=== PATIENT | male | born 1955 | race Caucasian/White ===

== ENCOUNTER → 2016-09-03 | Outpatient (CLI) | payer OTHER ==
--- NOTE | 2016-09-03 21:45 | CONS ---
DATE OF CONSULTATION: Primary care physician is Dr. Radha Mujica. 61-year-old male patient coming in for re-evaluation regarding obstructive sleep apnea. The patient had a study approximately 10 years ago where he was found to have mild disease with an AHI of 6.5. Back then he was given CPAP therapy; however, this was not covered by his insurance and he did not receive any treatment. Over the years, he became more symptomatic. Currently he is noted to snore very loudly and stop breathing on multiple occasions throughout the night. He goes to bed around 10:00 p.m., wakes up at 4:15 a.m. in the morning and he wakes up non- refreshed during the day. No falling asleep while driving. The patient works in [employer] and drives back and forth to work 45 minutes each direction. Not involved in a motor vehicle accident because of feeling drowsy or sleepy. No sleepwalking. No sleeptalking. No grinding of the teeth. He has overbite with malalignment of his upper and lower jaw. No previous history of head and neck surgeries. No restlessness in the lower extremities. No alcohol drinking. No substance abuse. PAST MEDICAL HISTORY: Obstructive sleep apnea. Drug allergies are not known. Outpatient medication list includes: 1. Vytorin. 2. Atenolol. 3. Hydrochlorothiazide. 4. Tamsulosin. 5. Aspirin. FAMILY HISTORY: Negative. SOCIAL HISTORY: Nonsmoker. No history of alcohol. No history of IV drugs. Works as a [employer]. REVIEW OF SYSTEMS: Twelve-point review of systems was done. Positive findings all mentioned above in the history of present illness. BP is 124/72, pulse 66, respirations 16, temperature 97.1, saturation 95% on room air. Weight is 225. Height is 67 inches. BMI is 35.3. Neck size 16-1/2 inches. Nicholls score 15. GENERAL APPEARANCE: Calm, comfortable. HEENT: Malalignment with significant crowding of the posterior pharynx. No goiter or neck masses. LUNGS: Clear to auscultation. HEART: Sounds are regular rate and rhythm. Normal S1, S2. No S3. No S4. No murmurs. ABDOMEN: Soft, nontender, no organomegaly. EXTREMITIES: No edema. No cyanosis, or clubbing. IMPRESSION: 1. Obstructive sleep apnea. The patient is quite somnolent and sleepy with an Nicholls score of 15. Coming in for re-evaluation. Based on the previous study in 2006 his baseline AHI was at 6.5. 2. Hypersomnia Nicholls score of 15. 3. Obesity with a body mass index of 35. 4. Hyperlipidemia. 5. Hypertension. 6. Benign prostatic hypertrophy. PLAN: 1. Weight loss. 2. We will proceed another screening polysomnogram to re-evaluate the presence and severity of obstructive sleep apnea and treat accordingly.
== END | disposition home or self-care (01) ==
LOC: SLEEP 10:08
PROVIDERS: ATTEND Internal Medicine Critical Care Medicine
DX: G47.33 Obstructive sleep apnea (adult) (pediatric) (principal); G47.10 Hypersomnia, unspecified; E66.9 Obesity, unspecified; Z68.35 Body mass index [BMI] 35.0-35.9, adult; E78.5 Hyperlipidemia, unspecified; I10 Essential (primary) hypertension; N40.0 Benign prostatic hyperplasia without lower urinary tract symptoms; Z79.82 Long term (current) use of aspirin; Z79.899 Other long term (current) drug therapy
CPT/HCPCS: 99211

== ENCOUNTER 2016-09-15 07:38 | Inpatient (IN) | payer OTHER ==
[2016-09-15] MEDS ORDERED: ASPIRIN 81 MG CHEW PO STA ×2 (07:52→08:59)
[2016-09-15] MEDS ORDERED: SODIUM CHLORIDE 0.9% 1,000 ML IV STA (07:52)
[2016-09-15] MEDS ORDERED: ONDANSETRON 4 MG/2 ML VIAL IVP STA (07:52)
[2016-09-15] MEDS ORDERED: NITROGLYCERIN OINT 1 INCH/GM PACKET TOPICAL STA (07:52)
[2016-09-15] MEDS ORDERED: MORPHINE SULFATE 2 MG/ML SYRINGE IVP STA (07:52)
--- NOTE | 2016-09-15 08:02 | ED ---
Chest Pain HPI - General Chief Complaint: Chest Pain Stated Complaint: CHEST PAIN Time Seen by Provider: 09/15/16 07:47 Source: EMS Mode of arrival: EMS - History of Present Illness Initial Comments: [place] years old male presents with the chest pressure started about 5 AM EMS folks gave him nitro it helped but had chest pressure is coming back he has cysts or chest pressure symptoms before but it never lasted this long at that time and he noticed the chest pressure he was resting he was not exerting himself there was no nausea no vomiting he had some cold sweats night before but not this morning he is not short winded and there is no pleuritic chest pain , no fever no chills no jaw pain no arm pain of system is unremarkable otherwise - Related Data Home Medications Medication Instructions Recorded Confirmed Aspirin [Adult Low Dose Aspirin EC] 81 mg PO DAILY 09/15/16 09/15/16 Atenolol [Tenormin] 50 mg PO DAILY 09/15/16 09/15/16 Ezetimibe/Simvastatin [Vytorin 1 tab PO DAILY 09/15/16 09/15/16 10-40 mg Tablet] Hydrochlorothiazide 25 mg PO DAILY 09/15/16 09/15/16 Tamsulosin HCl [Flomax] 0.4 mg PO DAILY 09/15/16 09/15/16 Allergies Allergy/AdvReac Type Severity Reaction Status Date / Time No Known Allergies Allergy Verified 09/15/16 08:00 Review of Systems ROS Statement: Those systems with pertinent positive or pertinent negative responses have been documented in the HPI. ROS Other: All systems not noted in ROS Statement are negative. EKG Findings - EKG Comments: EKG Findings:: EKG is normal sinus rhythm WV interval interval is 19E ventricular rate is 64 QRS duration is 94 QT/QTc is 420/433 review of this EKG reveals T-wave inversion in leads 3 and T wave flattening in aVF no ST elevation or ST depression noticed in the other leads except we want there is a T-wave inversion as well Past Medical History Past Medical History: Hyperlipidemia, Hypertension History of Any Multi-Drug Resistant Organisms: None Reported Past Surgical History: Appendectomy Past Psychological History: No Psychological Hx Reported Smoking Status: Never smoker Past Alcohol Use History: Rare Past Drug Use History: None Reported Course Vital Signs 09/15/16 07:53 Temperature 97.3 F L Pulse Rate 62 Respiratory 14 Rate Blood Pressure 116/67 O2 Sat by Pulse 94 L Oximetry Critical Care Time Total Critical Care Time: 45 Critical Care Time: He came in with a chest pressure and chest pressure responded to nitro very nicely but later he developed chest pressure again and he had the sweats last night to the point that he soaked the bed and that and with his other risk factors like hypertension and his age home and now the troponin is positive he has a non-Q MO is to be admitted with the massive aspirin and heparin and cardiology consult Disposition Clinical Impression: Myocardial infarction Disposition: ADMITTED IP TO THIS HOSP Condition: Good
[2016-09-15 08:10] LABS: Aty Lym Flag Slight; CH 29.7; CHCM 34.7; HCT 42.5 % (39.0-53.0); HDW 2.92; HGB 14.7 gm/dL (13.0-17.5); MCH 29.7 pg (25.0-35.0); MCHC 34.5 g/dL (31.0-37.0); Mean Platelet Volume 7.5; RBC 4.94 m/uL (4.30-5.90); RDW 13.1 % (11.5-15.5); WBC 5.3 k/uL (3.8-10.6); WBC (Perox) 5.27
[2016-09-15 08:16] LABS: INR 1.1 (<1.1); Partial Thromboplastin Time 24.1 sec (22.0-30.0)
[2016-09-15 08:18] LABS: ALT 37 U/L (21-72); AST 37 U/L (17-59); Alkaline Phosphatase 61 U/L (38-126); Anion Gap 11 mmol/L; Blood Urea Nitrogen 13 mg/dL (9-20); Carbon Dioxide 27 mmol/L (22-30); Chloride 103 mmol/L (98-107); Glucose 108 mg/dL (74-99); Non-African American GFR(MDRD) >60 (>60 ml/min/1.73 sqM); Potassium 3.6 mmol/L (3.5-5.1); Sodium 141 mmol/L (137-145); Total Bilirubin 0.7 mg/dL (0.2-1.3); Total Protein 7.1 g/dL (6.3-8.2)
--- NOTE | 2016-09-15 08:36 | XR ---
EXAMINATION TYPE: XR chest 2V DATE OF EXAM: 09/15/2016 8:26 AM HISTORY: Chest Pain. REFERENCE: NONE. FINDINGS: The lungs are clear. Heart size is upper limits of normal. Pleural spaces are clear. Note is made of hypertrophic change in the right AC joint. IMPRESSION: 1. BORDERLINE CARDIOMEGALY. 2. NO ACUTE INTRATHORACIC ABNORMALITY.
[2016-09-15 08:45] LABS: Add Differential Manual Differential
[2016-09-15 08:47] LABS: Creatine Kinase MB 6.7 ng/mL (0.0-2.4); Troponin I 1.22 ng/mL (0.000-0.034)
[2016-09-15 08:48] LABS: Manual Review Performed; Nucleated Red Blood Cells 0 /100 WBC (0-0); Total Cells Counted 100
[2016-09-15] MEDS ORDERED: HEPARIN SODIUM,PORCINE 5,000 UNIT/ML 1 ML VIAL IV ONE (08:59)
[2016-09-15] MEDS ORDERED: ACETAMINOPHEN TAB 325 MG TAB PO PRN (08:59)
[2016-09-15] MEDS ORDERED: MORPHINE SULFATE 2 MG/ML SYRINGE IVP PRN (08:59)
[2016-09-15] MEDS ORDERED: HEPARIN SODIUM,PORCINE/D5W PMX 25,000 UNIT in DEXTROSE/WATER 1 500ML.BAG IV SCH (09:00)
[2016-09-15] MEDS: METOPROLOL TARTRATE 25 MG TAB PO SCH ×2 (09:30→20:40)
[2016-09-15] MEDS ORDERED: SODIUM CHLORIDE 0.9% 1,000 ML in EMPTY BAG 1 BAG IV ONE (10:26)
[2016-09-15] MEDS ORDERED: ALPRAZolam 0.5 MG TAB PO PRN (10:26)
[2016-09-15] MEDS ORDERED: ASPIRIN 325 MG TAB PO STA (10:26)
[2016-09-15] MEDS ORDERED: NITROGLYCERIN SL TABS 0.4 MG TAB SUBLINGUAL PRN ×2 (10:26→14:10)
[2016-09-15] MEDS ORDERED: ALPRAZolam 0.25 MG TAB PO PRN (10:26)
[2016-09-15] MEDS ORDERED: ATORVASTATIN 80 MG TAB PO STA (10:26)
[2016-09-15 11:11] VITALS: BMI 34.2
[2016-09-15 11:39] LABS: Glucose,Whole Blood 98 mg/dL (75-99)
[2016-09-15] MEDS ORDERED: diphenhydrAMINE 50 MG/ML 1 ML VIAL ONE (12:34)
[2016-09-15] MEDS ORDERED: VERAPAMIL 2.5 MG/ML 2 ML AMP ONE (12:34)
[2016-09-15] MEDS ORDERED: HEPARIN SODIUM,PORCINE 30 ML 30 ML ONE (12:34)
[2016-09-15] MEDS ORDERED: LIDOCAINE 2% INJ 20 MG/ML (20 ML MDV) ONE (12:34)
[2016-09-15] MEDS ORDERED: MIDAZOLAM 2 MG/2 ML VIAL ONE (12:34)
[2016-09-15] MEDS ORDERED: HEPARIN SODIUM 1,000 UNIT/ML VIAL ONE (12:34)
[2016-09-15] MEDS ORDERED: IV FLUID CONTINUATION 1,000 ML IV ONE (12:35)
[2016-09-15] MEDS ORDERED: fentaNYL (PF) 50 MCG/ML 2 ML AMP ONE (12:54)
[2016-09-15] MEDS ORDERED: diphenhydrAMINE 50 MG/ML 1 ML VIAL IVP ONE (13:09)
[2016-09-15] MEDS ORDERED: fentaNYL (PF) 50 MCG/ML 2 ML AMP IV ONE (13:10)
[2016-09-15] MEDS ORDERED: LIDOCAINE 2% INJ 20 MG/ML SQ ONE (13:14)
[2016-09-15] MEDS ORDERED: VERAPAMIL SYRINGE (5 MG/10 ML) INTRAARTER ONE (13:18)
[2016-09-15] MEDS ORDERED: BIVALIRUDIN BOLUS 250 MG/50 ML IV ONE (13:40)
[2016-09-15] MEDS ORDERED: CLOPIDOGREL 75 MG TAB ONE (13:40)
[2016-09-15] MEDS ORDERED: BIVALIRUDIN 250 MG in SODIUM CHLORIDE 0.9% 50 ML IV ONE (13:41)
[2016-09-15] MEDS ORDERED: CLOPIDOGREL 75 MG TAB PO ONE (13:43)
[2016-09-15] MEDS ORDERED: NITROGLYCERIN 1000MCG/10ML SYRINGE INTRACORON ONE (13:49)
[2016-09-15] MEDS ORDERED: IOHEXOL 350 MG/ML 100 ML BOTTLE INJ ONE (13:59)
[2016-09-15] MEDS ORDERED: MAG HYDROX/AL HYDROX/SIMETH 30 ML CUP PO PRN (14:10)
[2016-09-15] MEDS ORDERED: RX INFO: IV CONTRAST WAS GIVEN 1 EACH MISC MISCELLANE PRN (14:10)
[2016-09-15] MEDS ORDERED: ATROPINE SULFATE 0.1 MG/ML 10ML SYRINGE IV PRN (14:10)
[2016-09-15] MEDS ORDERED: ZOLPIDEM 5 MG TAB PO PRN (14:10)
[2016-09-15] MEDS ORDERED: SODIUM CHLORIDE 0.9% 1,000 ML IV SCH (14:15)
--- NOTE | 2016-09-15 14:17 | CONS ---
DATE OF CONSULTATION: ATTENDING: Dr. Mujica Mr. Martinez is a 61-year-old male with known history of hypertension and hyperlipidemia, who presented with episode of chest discomfort and severe diaphoresis that occurred at night. He has no prior history of similar findings. He said at night woke up quite wet and had chest pressure. He came into the emergency room and received sublingual nitroglycerin and he is pain-free at this time. He is reasonably active physically without any exertional chest pain. He denies any significant dyspnea on exertion. No dizziness. No palpitation. No syncope. No PND, orthopnea. No peripheral edema. His medications at home include Flomax, hydrochlorothiazide 25 mg daily, aspirin once a day, Vytorin 10-40 mg daily and atenolol 50 mg daily. REVIEW OF SYSTEMS: RESPIRATORY SYSTEM: He has no recent wheezing. No cough. No history of obstructive lung disease. GI SYSTEM: No recent GI bleeding. No peptic ulcer disease. SYSTEM: No dysuria or hematuria. NERVOUS SYSTEM: No stroke or seizure. PHYSICAL EXAMINATION: A 61-year-old male, alert, oriented, in no apparent distress. Blood pressure 102/50 with a heart in the 50s. HEAD: Normocephalic. EYES: Sclerae anicteric. NECK: Good upstroke. No bruit. No jugular venous distention. LUNGS: Clear to auscultation. HEART: Regular rate and rhythm. S1, S2, no S3, with systolic murmur at the base. No diastolic murmur. No rub. ABDOMEN: Soft, nontender, positive bowel sounds. No organomegaly. EXTREMITIES: No edema. Intact distal pulses. Lab data revealed troponin of 1.22. BUN and creatinine of 13 and 0.8. Potassium 3.6, hemoglobin of 14.7. EKG revealed sinus mechanism, normal axis and intervals with T wave inversion inferiorly in leads III and aVF. Chest x-ray revealed no infiltrate. IMPRESSION: 1. Evidence of non-ST segment elevation myocardial infarction. 2. Hypertension. 3. Hyperlipidemia. RECOMMENDATIONS: Will proceed with coronary angiography to assess his status and guide his treatment. The rationale behind the procedure as well as risks and complications were discussed with the patient was who is in full understanding and agreement. Depending on the results of testing further recommendation will be made. Thank you for this consult. We will follow with you.
--- NOTE | 2016-09-15 15:36 | HP ---
DATE OF ADMISSION: 09/15/2016 The patient is a very pleasant 61-year-old gentleman who came in with complaints of pressure like chest pain, constant in nature, nonradiating in the retrosternal area. Associated with some shortness of breath, nonexertional in nature. The patient's chest pain is nonpleuritic in nature, not associated with food and patient had an EKG which is within normal limits. The patient's first troponin is elevated to 1.22 and patient was evaluated by cardiology. Patient is going for cardiac catheterization today. Patient does not have any history of coronary artery disease in the past. Does have family history of myocardial infarction. REVIEW OF SYSTEMS: CONSTITUTIONAL: No fever, no malaise, no fatigue. HEENT: No recent visual problems or hearing problems. Denied any sore throat. CARDIOVASCULAR: As described in HPI. PULMONARY: No shortness of breath, no cough, no hemoptysis. GASTROINTESTINAL: No diarrhea, no nausea, no vomiting, no abdominal pain. Normoactive bowel sounds. NEUROLOGICAL: No headaches, no weakness, no numbness. HEMATOLOGICAL: Denies any bleeding or petechiae. GENITOURINARY: Denies any burning micturition, frequency, or urgency. MUSCULOSKELETAL/RHEUMATOLOGICAL: Denies any joint pain, swelling, or any muscle pain. ENDOCRINE: Denies any polyuria or polydipsia. The rest of the 14 point review of systems is negative. Home medications include: 1. Aspirin. 2. Atenolol. 3. Zetia. 4. Hydrochlorothiazide. 5. Tamsulosin. ALLERGIES: No known drug allergies. PAST MEDICAL HISTORY: Hyperlipidemia, hypertension, appendectomy. SOCIAL HISTORY: Denied smoking, alcohol abuse or drug abuse. FAMILY HISTORY: Significant for hypertension in the family. VITAL SIGNS: Temperature 97.1, pulse of 99, respiratory rate of 16, blood pressure is 102/58, saturating at 96% on room air. PHYSICAL EXAMINATION: GENERAL: The patient is alert and oriented x3, not in any acute distress. Well developed, well nourished. HEENT: Pupils are round and equally reacting to light. EOMI. No scleral icterus. No conjunctival pallor. Normocephalic, atraumatic. No pharyngeal erythema. No thyromegaly. CARDIOVASCULAR: S1 and S2 present. No murmurs, rubs, or gallops. PULMONARY: Chest is clear to auscultation, no wheezing or crackles. ABDOMEN: Soft, nontender, nondistended, normoactive bowel sounds. No palpable organomegaly. MUSCULOSKELETAL: No joint swelling or deformity. EXTREMITIES: No cyanosis, clubbing, or pedal edema. NEUROLOGICAL: Gross neurological examination did not reveal any focal deficits. SKIN: No rashes. LABORATORY DATA: CBC, CMP, essentially within normal limits. Troponin as mentioned above. EKG as mentioned above. Chest x-ray did not show any pneumonic process. ASSESSMENT AND PLAN: 1. Sxs-CY-wzadhpitq myocardial infarction. Patient is on IV heparin and beta margareth. Patient is going for cardiac catheterization today. Cardiology evaluated the patient. 2. Hypertension. 3. Hyperlipidemia. For above-mentioned chronic medical problems, I will go ahead and continue his home medications. Maybe hold off on hydrochlorothiazide as patient is going to receive the beta margareth at this point of time. The patient is going to receive contrast as well. Patient is on antiplatelet therapy at this point of time. Patient's primary care physician is Dr. Cat Mujica.
--- NOTE | 2016-09-15 19:23 | CC ---
DATE OF SERVICE: Mr. Stinson is a 61-year-old male with a known history of hypertension, hyperlipidemia, who presented with symptoms of chest discomfort, had mild elevation of troponin consistent with non-ST segment elevation myocardial infarction. In view of that, recommendation was made regarding cardiac catheterization. The procedure as well as the risks and complications were discussed with the patient who is in full understanding and agreement. PROCEDURE: Patient was brought to the catheter in fasting semi state after receiving fentanyl and Benadryl and achieving moderate conscious sedation state. Using Xylocaine anesthesia and Seldinger technique, a 6 Gambian sheath was introduced in the right radial artery. Selective right and left coronary angiography were performed using 5 Gambian 3-1/2 Bend right Paul catheter, attempt to cannulate the left main using a 5 Gambian 3-1/2 Bend left Paul were unsuccessful. Subsequently attempt using a 6 Gambian EBU 3.75 was unsuccessful. Subsequent an Ecari left 3.75 was successful cannulating the left main, images of the left coronary system were obtained and following that angioplasty and stenting of the ramus intermedius was done. Following that, a 6 Gambian tight pigtail catheter was introduced into the left ventricle and a 30 degree ZAYAS view of the left ventricle was obtained. Following that, catheter and sheaths were removed. Hemostasis was obtained with deployment of TR band. There were no immediate complications. Patient is returned to his room in stable condition. Of note that he received intra-arterial verapamil. FINDINGS: LEFT MAIN: This is a large-size vessel trifurcating into left circumflex and left anterior descending artery and ramus intermedius, left main coronary artery is without any obstructive disease. LEFT ANTERIOR DESCENDING ARTERY: This is a large-size vessel reaching toward the apex, tapers down and distal third giving rise to a large diagonal branch proximally. The LAD after the diagonal branch at the take off of the first septal physician relations specialist has about a 30 to 40% plaque. The rest of the vessel has no high-grade stenosis. Ramus intermedius: This is a large-size vessel reaching the apical lateral wall. In the mid segment of the vessel there is an eccentric 70% plaque. LEFT CIRCUMFLEX: This is a nondominant vessel, giving rise to a moderately sized obtuse marginal branch that has mild intimal disease of 10 to 20% without any evidence of high-grade stenosis. RIGHT CORONARY ARTERY: This is a large dominant vessel, bifurcating distally into PDA and posterolateral segment and branches. The right coronary artery in the proximal and mid segment has mild intimal disease up to 20%, distally gives rise to a PLV that reaches towards the inferoapical wall. The rest of the vessel has no high-grade stenosis. LEFT VENTRICULOGRAM: Left ventriculogram was performed in 30 degrees ZAYAS view and revealed a normal left ventricular size and systolic function. Ejection fraction was 60%. There was no significant mitral regurgitation. HEMODYNAMICS: There was no gradient across the aortic valve. The left ventricular end-diastolic pressure was 12 mmHg. CONCLUSION: 1. Significant obstructive disease involving the ramus intermedius. 2. Mild disease involving the LAD, left circumflex and the right coronary artery. 3. Normal left ventricular size and systolic function. RECOMMENDATIONS: In view of the findings and anatomy, I have recommended proceeding with angioplasty and stenting of the ramus intermedius. The procedure as well as the risks and complications were discussed with the patient who is in full understanding and agreement.
--- NOTE | 2016-09-15 19:48 | PTCA ---
DATE OF SERVICE: Mr. Stinson is a 61-year-old male with a history of hypertension, hyperlipidemia, who presented with non- ST segment elevation myocardial infarction, underwent cardiac catheterization, was found to have significant disease involving the ramus intermedius. In view of that, recommendation was made regarding angioplasty and stenting. The procedure, as well as risks and complications were discussed with the patient who was in full understanding and agreement. PROCEDURE: Using the 3.75 Ecari left guiding catheter and after cannulating the left main, a 0.014 balanced medium weight J-wire was advanced across the lesion, positioned distally, then a 2.5 x 12 mm Xience Alpine stent was deployed, it was dilated at 12 atmospheres. After the last inflation, after appropriate wait, the balloon and the guidewire were withdrawn back in the guiding catheter. Images were obtained and repeated. Those images revealed stable successful stenting. Subsequently left ventriculogram was performed using 6 Samoan tight pigtail catheter, subsequently, catheter and sheaths were removed. Hemostasis was obtained with deployment of a TR band. There were no medical complications. Patient is returned to his room in stable condition. Of note, the patient had chest discomfort with the inflation that resolved at the end of procedure, he received Angiomax per protocol as well as oral loading dose of Clopidogrel. RESULTS: Successful stenting of the ramus intermedius with reduction in stenosis from 70% to 0%. RECOMMENDATION: Patient will be continued on aspirin, Plavix, beta margareth, and statin. The importance of dual antiplatelet treatment were discussed with the patient and his family who are in full understanding and agreement.
--- NOTE | 2016-09-15 19:50 | LTR ---
September 15, 2016 RE: Juan Christiano Dear Dr. Mujica: I had the pleasure of performing coronary angiography and coronary angioplasty and stenting on Mr. Martinez at [facility] on the september and a fully copy of procedure note will be forwarded to you. In brief, he underwent successful stenting of the ramus intermedius using a drug-eluting stent. At the same time, he was found to have mild obstructive disease involving the LAD, left circumflex and the right coronary artery. I am hopeful that this procedure, will stabilize his status . Thank you again for allowing me to participate in his care. Please feel free to call for any questions. Sincerely, KEVIN GARCIA MD
[2016-09-15 20:31] LABS: Creatine Kinase MB 7.6 ng/mL (0.0-2.4); Troponin I 3.41 ng/mL (0.000-0.034)
[2016-09-15] MEDS: ATORVASTATIN 40 MG TAB PO SCH (20:40)
[2016-09-16] MEDS: NITROGLYCERIN SL TABS 0.4 MG TAB SUBLINGUAL PRN ×3 (05:17→05:27)
[2016-09-16] MEDS ORDERED: HYDROmorphone 1 MG/ML 1 ML SYRINGE IVP STA (05:46)
[2016-09-16 06:59] LABS: CH 29.7; CHCM 34.4; HCT 41.7 % (39.0-53.0); HDW 2.91; HGB 14.1 gm/dL (13.0-17.5); MCH 29.4 pg (25.0-35.0); MCHC 33.9 g/dL (31.0-37.0); MCV 86.7 fL (80.0-100.0); Mean Platelet Volume 7.6; RBC 4.81 m/uL (4.30-5.90); WBC 5.5 k/uL (3.8-10.6)
[2016-09-16 07:02] LABS: Anion Gap 10 mmol/L; Blood Urea Nitrogen 13 mg/dL (9-20); Calcium 8.8 mg/dL (8.4-10.2); Carbon Dioxide 27 mmol/L (22-30); Chloride 105 mmol/L (98-107); Cholesterol 85 mg/dL (<200); Glucose 94 mg/dL (74-99); HDL Cholesterol 33 mg/dL (40-60); Non-African American GFR(MDRD) >60 (>60 ml/min/1.73 sqM); Potassium 3.6 mmol/L (3.5-5.1); Sodium 142 mmol/L (137-145); Triglycerides 111 mg/dL (<150)
[2016-09-16] MEDS: TAMSULOSIN 0.4 MG CAP.ER.24H PO SCH (08:41)
[2016-09-16] MEDS: METOPROLOL TARTRATE 25 MG TAB PO SCH ×2 (08:41→19:56)
[2016-09-16] MEDS: ASPIRIN 325 MG TAB PO SCH (08:41)
[2016-09-16] MEDS ORDERED: HYDROCHLOROTHIAZIDE 25 MG TAB PO SCH (09:00)
--- NOTE | 2016-09-16 11:14 | ECHOF ---
Referral Reason:mi MEASUREMENTS -------- HEIGHT: 172.7 cm WEIGHT: 99.3 kg BP: 145/85 RVIDd: 2.8 cm (< 3.3) IVSd: 1.3 cm (0.6 - 1.1) LVIDd: 4.8 cm (3.9 - 5.3) LVPWd: 1.1 cm (0.6 - 1.1) IVSs: 1.5 cm LVIDs: 3.6 cm LVPWs: 1.2 cm LA Diam: 4.2 cm (2.7 - 3.8) LAESV Index (A-L): 31.12 ml/m Ao Diam: 3.2 cm (2.0 - 3.7) AV Cusp: 2.0 cm (1.5 - 2.6) LA Diam: 4.5 cm (2.7 - 3.8) MV EXCURSION: 26.377 mm (> 18.000) MV EF SLOPE: 137 mm/s (70 - 150) EPSS: 0.7 cm MV E Shubham: 0.76 m/s MV DecT: 143 ms MV A Shubham: 0.67 m/s MV E/A Ratio: 1.13 RAP: 5.00 mmHg RVSP: 32.85 mmHg FINDINGS -------- Sinus rhythm. This was a technically adequate study. There is mild concentric left ventricular hypertrophy. Overall left ventricular systolic function is low-normal with, an EF between 50 - 55 %. The right ventricle is normal in size. LA is midly dilated 29-33ml/m2. The right atrial size is normal. There is mild aortic valve sclerosis. There is no evidence of aortic regurgitation. Mild mitral annular calcification present. Mild mitral regurgitation is present. Mild tricuspid regurgitation present. There is no evidence of pulmonary hypertension. The right ventricular systolic pressure, as measured by Doppler, is 32.85mmHg. Trace/mild (physiologic) pulmonic regurgitation. The aortic root size is normal. There is no pericardial effusion. CONCLUSIONS -------- 1. There is mild concentric left ventricular hypertrophy. 2. Trace/mild (physiologic) pulmonic regurgitation. 3. The aortic root size is normal. 4. There is no pericardial effusion. 5. Overall left ventricular systolic function is low-normal with, an EF between 50 - 55 %. 6. LA is midly dilated 29-33ml/m2. 7. There is mild aortic valve sclerosis. 8. Mild mitral annular calcification present. 9. Mild mitral regurgitation is present. 10. Mild tricuspid regurgitation present. 11. There is no evidence of pulmonary hypertension. 12. The right ventricular systolic pressure, as measured by Doppler, is 32.85mmHg. EDUCATION TECHNICIAN: Nikki Hollingsworth RDCS
[2016-09-16 11:56] VITALS: RESP 16
[2016-09-16] MEDS: CLOPIDOGREL 75 MG TAB PO SCH (14:19)
--- NOTE | 2016-09-16 15:00 | P.PN ---
Subjective Principal diagnosis: Non-STEMI This is a 61-year-old gentleman who presented to the hospital with a non-ST elevation myocardial infarction. He has known history of hypertension and hyperlipidemia, patient underwent angioplasty with stenting of the ramus by Dr. Grigsby yesterday. This morning patient did have an episode of discomfort in his right upper chest and right shoulder area, EKG was performed at that time which did not reveal any changes from post-PCI. Hemodynamically he has been stable. Patient was given 3 sublingual nitros and ultimately glottic with relief of symptoms. Since then he's been up ambulating in the hallway without any chest discomfort. CBC normal, potassium 3.6, BUN 13, creatinine 0.9. Objective - Vital Signs Vital signs: Vital Signs Temp 98.1 F 09/16/16 11:56 Pulse 67 09/16/16 12:00 Resp 16 09/16/16 12:00 BP 123/70 09/16/16 11:56 Pulse Ox 97 09/16/16 11:56 Intake & Output 09/15/16 09/16/16 09/16/16 18:59 06:59 18:59 Intake Total 241.48 680 Output Total 200 1100 400 Balance 41.48 -1100 280 Weight 102.1 kg 99.7 kg 99.7 kg Intake: IV 123.48 Oral 118 680 Output: Urine 200 1100 400 Other: Voiding Method Toilet Toilet Urinal Urinal # Voids 1 2 - Exam PHYSICAL EXAMINATION: HEENT: Head is atraumatic, normocephalic. Pupils equal, round. Neck is supple. There is no elevated jugular venous pressure. HEART EXAMINATION: Heart S1 and S2 systolic murmur is heard. CHEST EXAMINATION: Lungs are clear to auscultation and precussion. No chest wall tenderness is noted on palpation or with deep breathing. ABDOMEN: Soft, nontender. Bowel sounds are heard. No organomegaly noted. EXTREMITIES: 2+ peripheral pulses with no evidence of peripheral edema and no calf tenderness noted. Right radial site clean and dry, good distal pulse. NEUROLOGIC patient is awake, alert and oriented -3. . - Labs CBC & Chem 7: 09/16/16 05:40 09/16/16 05:40 Labs: Abnormal Lab Results - Last 24 Hours (Table) 09/15/16 09/16/16 Range/Units 19:17 05:40 Total Creatine Kinase 177 H (55-170) U/L CK-MB (CK-2) 7.6 H* (0.0-2.4) ng/mL Troponin I 3.410 H* (0.000-0.034) ng/mL HDL Cholesterol 33 L (40-60) mg/dL Assessment and Plan (1) NSTEMI (non-ST elevated myocardial infarction) Status: Acute (2) Stented coronary artery Narrative/Plan: s/p stenting of the Ramus Status: Acute (3) HTN (hypertension) Status: Chronic (4) Hyperlipemia Status: Chronic Plan: From cardiology's perspective, we'll continue to monitor the patient for another 24 hours. Plan for possible discharge home tomorrow if stable. Echocardiogram with Doppler study was performed which revealed an ejection fraction of 50-55%. DNP note has been reviewed, I agree with a documented findings and plan of care. Patient was seen and examined.
--- NOTE | 2016-09-16 17:47 | P.PN ---
Subjective Date of service 09/16/2016. Progress notebeing dictated for Dr. Desir Interval History: This is a 61 year old gentleman admitted with non-STEMI and multiple other medical issues. Underwent cardiac catheterization with stenting of the ramus yesterday, tolerated procedure well. This morning complained of right chest pain radiating to shoulder to back, accompanied by increasing shortness of breath ,lasting approximately 20 minutes at rest. Received 3 sublingual nitros and Dilaudid ,Symptoms resolved. EKG performed, reviewed by cardiology, without changes. Telemetry sinus bradycardia to sinus rhythm. Potassium 3.6. Echo reporting EF between 50-55%. Objective - Vital Signs Vital signs: Vital Signs Temp 98.4 F 09/16/16 16:48 Pulse 62 09/16/16 16:48 Resp 16 09/16/16 16:48 BP 111/70 09/16/16 16:48 Pulse Ox 96 09/16/16 16:48 Intake & Output 09/15/16 09/16/16 09/16/16 18:59 06:59 18:59 Intake Total 241.48 920 Output Total 200 1100 400 Balance 41.48 -1100 520 Weight 102.1 kg 99.7 kg 99.7 kg Intake: IV 123.48 Oral 118 920 Output: Urine 200 1100 400 Other: Voiding Method Toilet Toilet Urinal Urinal # Voids 1 2 - Exam PHYSICAL EXAM: VITAL SIGNS: [As above] GENERAL: [Sitting up at side of bed, no acute distress] HEENT: [Pupils equal conjunctiva normal.] NECK: [Supple, no JVD] RESPIRATORY EFFORT:[Normal] LUNGS: [Clear, no wheezes rhonchi or crackles] CARDIOVASCULAR[regular S1 and S2, positive systolic murmur, no edema] GI: [Abdomen soft, nontender, positive bowel sounds.] PSYCH: [Alert and oriented -3, mood and affect normal.] NEURO: No focal deficits, moves all 4 extremities, strength and sensation grossly intact. - Labs CBC & Chem 7: 09/16/16 05:40 09/16/16 05:40 Labs: Abnormal Lab Results - Last 24 Hours (Table) 09/15/16 09/16/16 Range/Units 19:17 05:40 Total Creatine Kinase 177 H (55-170) U/L CK-MB (CK-2) 7.6 H* (0.0-2.4) ng/mL Troponin I 3.410 H* (0.000-0.034) ng/mL HDL Cholesterol 33 L (40-60) mg/dL Assessment and Plan Plan: 1. Acute non-STEMI, status post cardiac catheterization with stenting of the ramus. 2. [Hypertension]. 3. [Hyperlipidemia]. Plan continue on current medication regime , monitoring and symptomatic treatment. Maintain dual antiplatelet treatment, beta margareth and statin.Continue monitoring overnight. Discharge planning in progress for tomorrow pending cardiology clearance. The impression and plan of care has been dictated as directed. : I performed a H&P examination of this patient and discussed the same with the dictator. I agree with the dictator's note. Any additional findings/opinions/ etc. will be noted.
[2016-09-16] MEDS: ATORVASTATIN 40 MG TAB PO SCH (19:56)
[2016-09-17 08:05] VITALS: TEMP 97.2
[2016-09-17] MEDS: CLOPIDOGREL 75 MG TAB PO SCH (08:05)
[2016-09-17] MEDS: ASPIRIN 325 MG TAB PO SCH (08:05)
[2016-09-17] MEDS: TAMSULOSIN 0.4 MG CAP.ER.24H PO SCH (08:06)
[2016-09-17] MEDS: METOPROLOL TARTRATE 25 MG TAB PO SCH (08:06)
--- NOTE | 2016-09-17 11:34 | PN ---
Mr. Martinez is a 61-year-old male who presented with non- ST segment elevation myocardial infarction, underwent cardiac catheterization and stenting of the ramus intermedius. He has been ambulating without difficulty. Denying any chest pain. His breathing has been stable. He denies any dizziness, palpitation. He denies any nausea. He continues to be on aspirin once a day, Lipitor 40 mg daily, Plavix 75 mg daily, metoprolol tartrate 25 mg twice a day. PHYSICAL EXAMINATION: Blood pressure 121/72 with the heart rate in the 70s. LUNGS: Clear. HEART: Regular rate and rhythm. S1, S2, no S3, no rub. ABDOMEN: Soft, nontender. EXTREMITIES: No edema. EKG revealed no acute changes. Echocardiogram revealed an ejection fraction 50% to 55% with mild mitral and tricuspid regurgitation. CONCLUSION: 1. Status post non- ST segment elevation myocardial infarction and stenting of the ramus intermedius. 2. History of hyperlipidemia. RECOMMENDATIONS: Patient will be discharged home today and followed as an outpatient.
[2016-09-17 11:43] VITALS: BP 115/67; PULSE 57
[2016-09-17] MEDS ORDERED: POTASSIUM CHLORIDE ER 20 MEQ TAB.ER PO STA (12:03)
--- NOTE | 2016-09-17 16:15 | P.DS ---
Providers Date of admission: 09/15/16 08:59 Expected date of discharge: 09/17/16 Attending physician: Fidel Desir Consults: 09/15/16 14:10 Consult Physician Routine Consulting Provider: [facility] Consult Reason/Comments: Post Interventional patient Do you want consulting provider notified?: Already Contacted Primary care physician: Cat Mujica [facility] Course: Final Diagnoses: 1. Acute non-STEMI, status post cardiac catheterization with stenting of the ramus. 2. [Hypertension]. 3. [Hyperlipidemia]. Hospital course:This is a 61 year old gentleman admitted with chest pain, acute non-STEMI and multiple other medical issues. Evaluated by cardiology , underwent cardiac catheterization with stenting of the ramus, tolerated procedure well. Echo reporting EF between 50-55%. Postprocedure, the following morning, complained of an isolated chest pain, EKG repeated and reviewed by cardiology with no changes reported. Ambulating, tolerating increase in exertion well with no further episodes of chest pain. Patient has been cleared for discharge by cardiology. Patient is being discharged home in a stable condition with guarded prognosis. Patient Condition at Discharge: Stable Plan - Discharge Summary New Discharge Prescriptions: Atorvastatin [Lipitor] 40 mg PO HS #30 tab Clopidogrel [Plavix] 75 mg PO DAILY #90 tab Metoprolol Tartrate [Lopressor] 25 mg PO BID #60 tab Nitroglycerin Sl Tabs [Nitrostat] 0.4 mg SUBLINGUAL Q5M PRN #25 tab PRN Reason: Chest Pain Discharge Medication List Aspirin [Adult Low Dose Aspirin EC] 81 mg PO HS 09/15/16 [History] Tamsulosin HCl [Flomax] 0.4 mg PO HS 09/15/16 [History] Atorvastatin [Lipitor] 40 mg PO HS #30 tab 09/17/16 [Rx] Clopidogrel [Plavix] 75 mg PO DAILY #90 tab 09/17/16 [Rx] Metoprolol Tartrate [Lopressor] 25 mg PO BID #60 tab 09/17/16 [Rx] Nitroglycerin Sl Tabs [Nitrostat] 0.4 mg SUBLINGUAL Q5M PRN #25 tab 09/17/16 [Rx ] Follow up Appointment(s)/Referral(s): Minda Grigsby MD [STAFF PHYSICIAN] - 1 Week (Cardiology office to call pt) Cat Mujica MD [Primary Care Provider] - 3 Days (Office closed for meeting , pt to call and schedule appointment) Ambulatory/Diagnostic Orders: Complete Blood Count w/diff [LAB.AMB] Time Frame: 3 Days, Location: Determined By Patient Patient Instructions/Handouts: After Radial Heart Catheterization (GEN) Activity/Diet/Wound Care/Special Instructions: Diet: cardiac aCTIVITY: LIMITED tiLL f/u Discharge Disposition: HOME SELF-CARE
== END 2016-09-17 13:48 | disposition home or self-care (01) | DRG 247 ==
LOC: EC 07:38 → 6SEL 08:59
PROVIDERS: ADMIT Internal Medicine; ATTEND Internal Medicine
PROC: B2111ZZ Fluoroscopy of Multiple Coronary Arteries using Low Osmolar Contrast (ICD-10-PCS; 2016-09-15)
PROC: B2151ZZ Fluoroscopy of Left Heart using Low Osmolar Contrast (ICD-10-PCS; 2016-09-15)
PROC: 027034Z Dilation of Coronary Artery, One Artery with Drug-eluting Intraluminal Device, Percutaneous Approach (ICD-10-PCS; principal; 2016-09-15 12:25)
PROC: 4A023N7 Measurement of Cardiac Sampling and Pressure, Left Heart, Percutaneous Approach (ICD-10-PCS; 2016-09-15 12:25)
DX: I21.4 Non-ST elevation (NSTEMI) myocardial infarction (principal); I10 Essential (primary) hypertension; E78.5 Hyperlipidemia, unspecified; R00.1 Bradycardia, unspecified; Z79.82 Long term (current) use of aspirin; Z79.899 Other long term (current) drug therapy; Z82.49 Family history of ischemic heart disease and other diseases of the circulatory system
CPT/HCPCS: 36415; 71020; 80048; 80053; 80061; 82550; 82553; 83735; 83880; 84484; 85025; 85027; 85347; 85610; 85730; 93005; 93306; 93458; 96361; 96374; 96376; 99291

== ENCOUNTER → 2017-01-07 | Outpatient (CLI) | payer OTHER ==
--- NOTE | 2017-01-07 18:01 | PN ---
Christiano is 61 coming in for follow up regarding his obstructive sleep apnea treatment. The patient was found to have mild disease with an AHI of 12.8. Yet , based on the fact that he was quite symptomatic, he was treated with CPAP at a pressure of 9 cm of water. Today, on his compliancy check, the patient is feeling great. He is benefiting from treatment. He is much more alert and awake during the day. He is using an AirFit P10 nasal pillow. However, he is on and off having some snoring from his mouth and leak of air from his mouth. He is looking for an alternative full face mask. Compliance data shows excellent use of an average of 6.9 hours of CPAP use per night. No leak around the mask. Leak factor is 13 L per minute and his AHI while on treatment is down to 0.4. CPAP treatment for more than four hours is 100% for the past 30 days. He has lost 7 to 8 pounds since his last evaluation. BP 133/67. Pulse 67. Respiratory rate 16, weight 218. Temperature 97.9. Lentner score is 9. Saturation 97%. General appearance: Calm, comfortable. HEENT: Negative for JVD. No goiter. No neck masses. Lungs clear to auscultation. Heart sounds regular rate and rhythm. Normal S1, S2. Abdomen soft, nontender. No organomegaly. Extremities: No edema. No cyanosis. No clubbing. ASSESSMENT: 1. Symptomatic obstructive sleep apnea. AHI 12.8 currently undergoing successful CPAP therapy pressure of 9. 2. Hypersomnia, improving. 3. Obesity, losing weight. 4. Hyperlipidemia. 5. Hypertension. 6. BPH. PLAN: 1. The patient has demonstrated excellent clinical response and compliance. Compliance data was checked. We will try him on an air touch F20 full face mask as an alternative mask and a prescription was sent. Alternatively, the patient can use the Mirage FX with a chin strap. 2. Her treatment is successful. 3. See me back in a year or two. Earlier if needed. ALONA
== END | disposition home or self-care (01) ==
LOC: SLEEP 10:00
PROVIDERS: ATTEND Internal Medicine Critical Care Medicine
DX: G47.33 Obstructive sleep apnea (adult) (pediatric) (principal); G47.10 Hypersomnia, unspecified; E66.9 Obesity, unspecified; E78.5 Hyperlipidemia, unspecified; I10 Essential (primary) hypertension; N40.1 Benign prostatic hyperplasia with lower urinary tract symptoms

== ENCOUNTER → 2017-01-07 | Outpatient (CLI) | payer OTHER ==
[2017-01-07 09:57] LABS: ALT 40 U/L (21-72); AST 27 U/L (17-59); Alkaline Phosphatase 65 U/L (38-126); Anion Gap 8 mmol/L; Blood Urea Nitrogen 15 mg/dL (9-20); Calcium 9.3 mg/dL (8.4-10.2); Carbon Dioxide 29 mmol/L (22-30); Chloride 104 mmol/L (98-107); Cholesterol 122 mg/dL (<200); Glucose 87 mg/dL (74-99); HDL Cholesterol 52 mg/dL (40-60); Non-African American GFR(MDRD) >60 (>60 ml/min/1.73 sqM); Potassium 4.4 mmol/L (3.5-5.1); Sodium 141 mmol/L (137-145); Total Bilirubin 0.7 mg/dL (0.2-1.3); Total Protein 7.3 g/dL (6.3-8.2); Triglycerides 81 mg/dL (<150)
== END ==
LOC: LABWHC1 08:38
PROVIDERS: ATTEND Internal Medicine Interventional Cardiology
DX: E78.2 Mixed hyperlipidemia (principal)
CPT/HCPCS: 36415; 80053; 80061

== ENCOUNTER → 2017-06-25 | Outpatient (CLI) | payer OTHER ==
[2017-06-25 09:18] LABS: ALT 50 U/L (21-72); AST 28 U/L (17-59); Cholesterol 132 mg/dL (<200); HDL Cholesterol 56 mg/dL (40-60); LDL Cholesterol,Calculated 60 mg/dL (0-99); Triglycerides 78 mg/dL (<150)
== END | disposition home or self-care (01) ==
LOC: LABWHC1 08:24
PROVIDERS: ATTEND Internal Medicine Interventional Cardiology
DX: E78.2 Mixed hyperlipidemia (principal)
CPT/HCPCS: 36415; 80061; 84450; 84460

== ENCOUNTER → 2017-09-24 | Outpatient (CLI) | payer OTHER ==
--- NOTE | 2017-09-24 09:21 | US ---
EXAMINATION TYPE: US prostate transrectal DATE OF EXAM: 09/24/2017 COMPARISON: Prior prostate ultrasound 08/02/2015. CLINICAL HISTORY: R97.20 Elevated PSA. This examination was performed using the transrectal probe. EXAM MEASUREMENTS: Gland Size: 6.7 x 3,9 x 5.7cm Volume: 78.4 Predicted PSA: 9.4 Actual PSA (if available):6.6 Initial images of region of seminal vesicles show marked shadowing without definitive visualization. Prostate gland remains markedly heterogeneous in appearance and markedly enlarged in size even more p rominent than prior study. No obvious hypoechoic nodule is seen. IMPRESSION: Markedly enlarged heterogeneous prostate consistent with BPH. No suspicious nodules evid ent.
== END | disposition home or self-care (01) ==
LOC: RADUSMAIN 08:03
PROVIDERS: ATTEND Internal Medicine
DX: R93.8 Abnormal findings on diagnostic imaging of other specified body structures (principal); R97.20 Elevated prostate specific antigen [PSA]
CPT/HCPCS: 76872

== ENCOUNTER → 2018-03-11 | Outpatient (CLI) | payer OTHER ==
[2018-03-11 08:44] LABS: Basophils % (A) 0 %; Eosinophils # (A) 0.2 k/uL (0-0.7); Eosinophils % (A) 3 %; HCT 47.7 % (39.0-53.0); HGB 16.3 gm/dL (13.0-17.5); Lymphocytes # (A) 1.3 k/uL (1.0-4.8); Lymphocytes % (A) 21 %; MCH 30.1 pg (25.0-35.0); MCHC 34.1 g/dL (31.0-37.0); MCV 88.3 fL (80.0-100.0); Mean Platelet Volume 7.7; Monocytes # (A) 0.3 k/uL (0-1.0); Monocytes % (A) 5 %; Neutrophils # (A) 4.3 k/uL (1.3-7.7); Neutrophils % (A) 70 %; Platelet Count 173 k/uL (150-450); RDW 13.4 % (11.5-15.5); WBC 6.1 k/uL (3.8-10.6)
[2018-03-11 09:10] LABS: ALT 35 U/L (21-72); AST 28 U/L (17-59); Albumin 4.1 g/dL (3.5-5.0); Alkaline Phosphatase 70 U/L (38-126); Anion Gap 8 mmol/L; Blood Urea Nitrogen 15 mg/dL (9-20); Calcium 9.2 mg/dL (8.4-10.2); Carbon Dioxide 30 mmol/L (22-30); Chloride 104 mmol/L (98-107); Cholesterol 132 mg/dL (<200); Creatine Kinase 71 U/L (55-170); Glucose 90 mg/dL (74-99); HDL Cholesterol 47 mg/dL (40-60); LDL Cholesterol,Calculated 49 mg/dL (0-99); Potassium 4.5 mmol/L (3.5-5.1); Sodium 142 mmol/L (137-145); Total Bilirubin 0.7 mg/dL (0.2-1.3); Total Protein 7.5 g/dL (6.3-8.2); Triglycerides 181 mg/dL (<150)
[2018-03-11 20:21] LABS: Hemoglobin A1C 5.2 % (4.0-6.0)
== END | disposition home or self-care (01) ==
LOC: LABWHC1 08:15
PROVIDERS: ATTEND Family Medicine
DX: E78.5 Hyperlipidemia, unspecified (principal)
CPT/HCPCS: 36415; 80053; 80061; 82550; 83036; 85025

== ENCOUNTER → 2018-03-31 | Outpatient (CLI) | payer OTHER ==
--- NOTE | 2018-03-31 10:38 | ECHOF ---
Referral Reason:I25.10Atherosclerotic heart disease of [place] MEASUREMENTS -------- HEIGHT: 172.7 cm WEIGHT: 102.1 kg BP: 161/78 RVIDd: 3.3 cm (< 3.3) IVSd: 1.2 cm (0.6 - 1.1) LVIDd: 4.7 cm (3.9 - 5.3) LVPWd: 1.2 cm (0.6 - 1.1) IVSs: 1.6 cm LVIDs: 3.1 cm LVPWs: 1.5 cm LA Diam: 3.7 cm (2.7 - 3.8) LAESV Index (A-L): 32.54 ml/m Ao Diam: 3.7 cm (2.0 - 3.7) AV Cusp: 2.4 cm (1.5 - 2.6) MV EXCURSION: 17.354 mm (> 18.000) MV EF SLOPE: 97 mm/s (70 - 150) EPSS: 0.4 cm MV E Shubham: 0.74 m/s MV DecT: 188 ms MV A Shubham: 0.58 m/s MV E/A Ratio: 1.28 AR PHT: 931 ms RAP: 5.00 mmHg RVSP: 18.81 mmHg FINDINGS -------- Sinus rhythm. This was a technically good study. The left ventricular size is normal. There is borderline concentric left ventricular hypertrophy. Overall left ventricular systolic function is normal with, an EF between 55 - 60 %. The right ventricle is mildly enlarged. LA is midly dilated 29-33ml/m2. The right atrium is normal in size. There is mild aortic valve sclerosis. There is mild aortic regurgitation. There is trace mitral regurgitation. Mild tricuspid regurgitation present. Right ventricular systolic pressure is normal at < 35 mmHg. Trace/mild (physiologic) pulmonic regurgitation. The aortic root size is normal. Normal inferior vena cava with normal inspiratory collapse consistent with estimated right atrial pre ssure of 5 mmHg. There is no pericardial effusion. CONCLUSIONS -------- 1. Sinus rhythm. 2. This was a technically good study. 3. The left ventricular size is normal. 4. There is borderline concentric left ventricular hypertrophy. 5. Overall left ventricular systolic function is normal with, an EF between 55 - 60 %. 6. The right ventricle is mildly enlarged. 7. LA is midly dilated 29-33ml/m2. 8. The right atrium is normal in size. 9. There is mild aortic valve sclerosis. 10. There is mild aortic regurgitation. 11. There is trace mitral regurgitation. 12. Mild tricuspid regurgitation present. 13. Right ventricular systolic pressure is normal at < 35 mmHg. 14. Trace/mild (physiologic) pulmonic regurgitation. 15. The aortic root size is normal. 16. Normal inferior vena cava with normal inspiratory collapse consistent with estimated right atrial pressure of 5 mmHg. 17. There is no pericardial effusion. RADIOLOGIST DIAGNOSTIC: Afshan Kim RDCS
== END | disposition home or self-care (01) ==
LOC: RADECHMAIN 08:19
PROVIDERS: ATTEND Family Medicine
DX: I08.2 Rheumatic disorders of both aortic and tricuspid valves (principal); I25.10 Atherosclerotic heart disease of native coronary artery without angina pectoris
CPT/HCPCS: 93306

== ENCOUNTER → 2018-10-30 | Outpatient (CLI) | payer OTHER ==
[2018-10-30 07:28] LABS: Basophils % (A) 0 %; Eosinophils # (A) 0.2 k/uL (0-0.7); Eosinophils % (A) 3 %; HGB 15.2 gm/dL (13.0-17.5); Lymphocytes # (A) 1.3 k/uL (1.0-4.8); Lymphocytes % (A) 21 %; MCH 28.5 pg (25.0-35.0); MCHC 32.3 g/dL (31.0-37.0); MCV 88.2 fL (80.0-100.0); Monocytes # (A) 0.4 k/uL (0-1.0); Monocytes % (A) 6 %; Neutrophils # (A) 4.3 k/uL (1.3-7.7); Neutrophils % (A) 68 %; Platelet Count 177 k/uL (150-450); RBC 5.33 m/uL (4.30-5.90); RDW 13.9 % (11.5-15.5); WBC 6.4 k/uL (3.8-10.6)
[2018-10-30 12:20] LABS: Albumin 4.3 g/dL (3.80-4.90); Albumin/Globulin Ratio 1.65 (1.60-3.17); Anion Gap 3.6 mmol/L (4.00-12.00); Calcium 8.9 mg/dL (8.7-10.3); Carbon Dioxide 31.4 mmol/L (21.6-31.8); Globulin 2.6 g/dL (1.6-3.3); Potassium 4.4 mmol/L (3.5-5.5); Total Bilirubin 0.6 mg/dL (0.2-1.2); Total Protein 6.9 g/dL (6.2-8.2)
[2018-10-30 14:01] LABS: Hemoglobin A1C 5.5 % (4.0-6.0)
== END | disposition home or self-care (01) ==
LOC: LABWHC1 07:09
PROVIDERS: ATTEND Family Medicine
DX: Z00.00 Encounter for general adult medical examination without abnormal findings (principal); E78.5 Hyperlipidemia, unspecified; Z12.5 Encounter for screening for malignant neoplasm of prostate
CPT/HCPCS: 80061; 80053; 84443; 82550; 85025; 83036; 36415; G0103

== ENCOUNTER → 2019-04-16 | Outpatient (CLI) | payer OTHER ==
[2019-04-16 11:44] LABS: Basophils % (A) 0 %; Eosinophils # (A) 0.1 k/uL (0-0.7); Eosinophils % (A) 2 %; HCT 45.8 % (39.0-53.0); HGB 15.5 gm/dL (13.0-17.5); Lymphocytes # (A) 1.1 k/uL (1.0-4.8); Lymphocytes % (A) 21 %; MCH 30.2 pg (25.0-35.0); MCHC 33.8 g/dL (31.0-37.0); MCV 89.3 fL (80.0-100.0); Mean Platelet Volume 6.4; Monocytes # (A) 0.3 k/uL (0-1.0); Monocytes % (A) 6 %; Neutrophils # (A) 3.9 k/uL (1.3-7.7); Neutrophils % (A) 70 %; Platelet Count 179 k/uL (150-450); RBC 5.12 m/uL (4.30-5.90); RDW 13.4 % (11.5-15.5); WBC 5.6 k/uL (3.8-10.6)
[2019-04-16 17:40] LABS: African American GFR (CKD) 91.8 (60.0-200.0); Albumin 4.6 g/dL (3.80-4.90); Albumin/Globulin Ratio 1.77 (1.60-3.17); Anion Gap 7.3 mmol/L (4.00-12.00); Calcium 9.1 mg/dL (8.7-10.3); Carbon Dioxide 28.7 mmol/L (21.6-31.8); Chol/HDL Ratio 2.33; Globulin 2.6 g/dL (1.6-3.3); Potassium 3.9 mmol/L (3.5-5.5); Total Bilirubin 0.7 mg/dL (0.2-1.2); Total Protein 7.2 g/dL (6.2-8.2)
[2019-04-16 19:40] LABS: Hemoglobin A1C 5.3 % (4.0-6.0)
== END ==
LOC: LABWHC1 10:59
PROVIDERS: ATTEND Urology
DX: E78.5 Hyperlipidemia, unspecified (principal); R97.20 Elevated prostate specific antigen [PSA]
CPT/HCPCS: 36415; 80053; 80061; 82550; 83036; 84153; 85025

== ENCOUNTER → 2019-08-06 | Outpatient (CLI) | payer OTHER ==
[2019-08-06 10:38] LABS: Basophils % (A) 0 %; Eosinophils # (A) 0.1 k/uL (0-0.7); Eosinophils % (A) 2 %; HCT 46.5 % (39.0-53.0); HGB 15.8 gm/dL (13.0-17.5); Lymphocytes # (A) 1.1 k/uL (1.0-4.8); Lymphocytes % (A) 20 %; MCH 29.9 pg (25.0-35.0); MCHC 33.9 g/dL (31.0-37.0); MCV 88.3 fL (80.0-100.0); Mean Platelet Volume 8.2; Monocytes # (A) 0.3 k/uL (0-1.0); Monocytes % (A) 5 %; Neutrophils # (A) 3.9 k/uL (1.3-7.7); Neutrophils % (A) 71 %; Platelet Count 175 k/uL (150-450); RBC 5.27 m/uL (4.30-5.90); RDW 13.1 % (11.5-15.5); WBC 5.6 k/uL (3.8-10.6)
[2019-08-06 10:49] LABS: Calcium 9.1 mg/dL (8.4-10.2); Potassium 4.3 mmol/L (3.5-5.1)
== END | disposition home or self-care (01) ==
LOC: LABPAT 09:37
PROVIDERS: ATTEND Urology
DX: Z01.812 Encounter for preprocedural laboratory examination (principal); C61 Malignant neoplasm of prostate
CPT/HCPCS: 36415; 80048; 85025

== ENCOUNTER 2019-08-13 06:05 | Observation (INO) | payer OTHER ==
[2019-08-04 13:54] VITALS: BMI 32.8
--- NOTE | 2019-08-08 09:16 | P.GSHP ---
History of Present Illness H&P Date: 08/08/19 Chief Complaint: Prostate cancer The patient is a 64-year-old white male whose PSA level was 6.6 in August 2017. His PSA level increased to 8.1 in October 2018, and 11.0 in April 2019. His prostate on examination was enlarged but smooth. He underwent a prostate ultrasound with biopsies. The prostate volume was 51 mL. 3 out of 12 biopsies showed evidence of prostate cancer. Specifically, the right apical and right mid biopsies showed Richie 3+4 (50% and 10%, respectively), and the left lateral mid biopsy showed a small focus of [place] 6 adenocarcinoma. The Prolaris score was 2.7. I had a lengthy discussion with the patient and his regarding alternative treatment options. He has elected to undergo a robotic-assisted laparoscopic prostatectomy (RALP) and comes for this reason. - Constitutional Constitutional: Denies chills, Denies fever - Cardiovascular Cardiovascular: Reports high blood pressure - Genitourinary (Male) Genitourinary: Reports nocturia, Denies erectile dysfunction Past Medical History Past Medical History: Cancer, Hyperlipidemia, Hypertension, Myocardial Infarction ([place]), Sleep Apnea/CPAP/BIPAP Additional Past Medical History / Comment(s): prostate CA-dx Jun 2019-no radiation or chemo,uses cpap Last Myocardial Infarction Date:: 2016 History of Any Multi-Drug Resistant Organisms: None Reported Past Surgical History: Appendectomy, Heart Catheterization With Stent, Orthopedi c Surgery Additional Past Surgical History / Comment(s): Right Shoulder Rotator Cuff in 2012, heart stent x1,prostate bx Past Anesthesia/Blood Transfusion Reactions: No Reported Reaction Date of Last Stent Placement:: 2016 Smoking Status: Never smoker - Past Family History Father Family Medical History: Hypertension Mother Family Medical History: COPD Additional Family Medical History / Comment(s): emphysema Medications and Allergies Home Medications Medication Instructions Recorded Confirmed Type Aspirin [Adult Low Dose Aspirin EC] 81 mg PO HS 09/15/16 08/04/19 History Tamsulosin HCl [Flomax] 0.4 mg PO HS 09/15/16 08/04/19 History Atorvastatin [Lipitor] 40 mg PO HS #30 tab 09/17/16 08/04/19 Rx Metoprolol Tartrate [Lopressor] 25 mg PO BID #60 tab 09/17/16 08/04/19 Rx Nitroglycerin Sl Tabs [Nitrostat] 0.4 mg SUBLINGUAL Q5M PRN #25 tab 09/17/16 08/04/19 Rx Losartan Potassium 50 mg PO HS 08/05/19 08/05/19 History Allergies Allergy/AdvReac Type Severity Reaction Status Date / Time No Known Allergies Allergy Verified 08/04/19 13:43 Surgical - Exam - General well developed, well nourished, no distress - Neck no masses, trachea midline - Respiratory normal respiratory effort, clear to auscultation - Cardiovascular Rhythm: regular Abnormal Heart Sounds: no systolic murmur, no diastolic murmur - Abdomen Abdomen: soft, non tender, no guarding, no rigid, no rebound Hernia: no inguinal, no umbilical - Genitourinary normal penis with no external lesions left: testicle absent - Rectum Rectum: normal sphincter tone, no masses, other (Prostate moderately enlarged but smooth) - Psychiatric oriented to time, oriented to person, oriented to place, speech is normal, memory intact Assessment and Plan (1) Malignant neoplasm of prostate Status: Acute Code(s): C61 - MALIGNANT NEOPLASM OF PROSTATE SNOMED Code(s): 252597932 Plan: RALP with bilateral pelvic lymphadenectomy. The procedure has been reviewed in detail with the patient and his . The anticipated perioperative course was discussed, as were potential risks. These include anesthesia, bleeding, infection, bowel injury, neurovascular injury, urinary leak, lymphocele, and vesical neck contracture. He is aware of the likelihood of postoperative urinary incontinence, which may fail to resolve. He also understands the possibility of erectile dysfunction despite preservation of the neurovascular bundles.
[~2019-08-13 06:05] MED LIST: HEPARIN SODIUM,PORCINE 5,000 UNIT/ML 1 ML VIAL SQ ONE
[2019-08-13] MEDS ORDERED: LACTATED RINGERS 1,000 ML IV ONE ×4 (06:40→12:11)
[2019-08-13] MEDS ORDERED: MIDAZOLAM 2 MG/2 ML VIAL IV PRN (06:42)
[2019-08-13] MEDS ORDERED: HYDROmorphone 0.5 MG/0.5 ML SYRINGE IVP PRN (06:42)
[2019-08-13] MEDS ORDERED: DEXAMETHASONE SOD PHOSPHATE 10 MG/ML 1 ML VIAL IV ONE (06:42)
[2019-08-13] MEDS ORDERED: ONDANSETRON 4 MG/2 ML VIAL IVP ONE (06:42)
[2019-08-13] MEDS ORDERED: LIDOCAINE 1% (10MG/ML) FOR IV START INTRADERMA ONE (06:44)
[2019-08-13] MEDS ORDERED: WATER FOR INJECTION, STERILE 10 ML VIAL IV ONE (07:26)
[2019-08-13] MEDS ORDERED: MIDAZOLAM 2 MG/2 ML VIAL ONE (07:26)
[2019-08-13] MEDS ORDERED: SUCCINYLCHOLINE CHLORIDE 100 MG/5 ML SYR IV ONE (07:26)
[2019-08-13] MEDS ORDERED: GLYCOPYRROLATE 0.2 MG/ML 2 ML VIAL ONE (07:26)
[2019-08-13] MEDS ORDERED: HYDROmorphone (PF) 1 MG/ML ONE (07:26)
[2019-08-13] MEDS ORDERED: PROPOFOL 10 MG/ML 20 ML VIAL IV ONE (07:26)
[2019-08-13] MEDS ORDERED: LIDOCAINE 1% INJ 10MG/ML (20 ML MDV) ONE (07:26)
[2019-08-13] MEDS ORDERED: ePHEDrine SULFATE/0.9% NACL/PF 50 MG/5 ML SYRINGE IV ONE (07:26)
[2019-08-13] MEDS ORDERED: NEOSTIGMINE 1 MG/ML 10 ML VIAL ONE (07:26)
[2019-08-13] MEDS ORDERED: ROCURONIUM BROMIDE 10 MG/ML 5 ML VIAL IV ONE (07:26)
[2019-08-13] MEDS ORDERED: fentaNYL (PF) 50 MCG/ML 2 ML AMP ONE (07:26)
[2019-08-13] MEDS ORDERED: BUPIVACAINE (PF) 0.25% 30 ML VIAL SQ ONE ×2 (08:00)
[2019-08-13] MEDS ORDERED: NITROGLYCERIN SL TABS 0.4 MG TAB SUBLINGUAL PRN (12:36)
--- NOTE | 2019-08-13 12:36 | P.OP ---
Date of Procedure: 08/13/19 Preoperative Diagnosis: Adenocarcinoma of the prostate, clinical stage TIc NX M0 Postoperative Diagnosis: Same Procedure(s) Performed: Bilateral nerve sparing robotic-assisted laparoscopic prostatectomy (RALP) Anesthesia: ENRRIQUE Surgeon: Louis Metcalf Music Autographer #1: Mauri Wing Estimated Blood Loss (ml): 300 IV fluids (ml): 2,000 Condition: stable Disposition: PACU Indications for Procedure: The patient is a 64-year-old white male whose PSA level was 6.6 in August 2017. His PSA level increased to 8.1 in October 2018, and 11.0 in April 2019. His prostate on examination was enlarged but smooth. He underwent a prostate ultrasound with biopsies. The prostate volume was 51 mL. 3 out of 12 biopsies showed evidence of prostate cancer. Specifically, the right apical and right mid biopsies showed Richie 3+4 (50% and 10%, respectively), and the left lateral mid biopsy showed a small focus of [place] 6 adenocarcinoma. The Prolaris score was 2.7. I had a lengthy discussion with the patient and his regarding alternative treatment options. He has elected to undergo a robotic-assisted laparoscopic prostatectomy (RALP) and comes for this reason. Operative Findings: No evidence of extraprostatic disease. Description of Procedure: The patient was taken in the operating room and placed in the dorsal lithotomy position, with his legs supported in Flip stirrups. He was carefully positione d on a beanbag for stability. The abdomen and external genitalia were prepped and draped sterilely. A Hess catheter was inserted. The Veress needle was passed through the anterior abdominal wall immediately cephalad to the umbilicus, and insufflation was performed to a pressure of 20 mm Hg. Once insufflation was performed, the Veress needle was removed and a supraumbilical incision was made, through which a 12 mm camera port was placed. Under camera guidance, 3 8 mm robotic ports were placed, 2 on the left and one on the right. An additional 12 mm port was placed on the right lateral side for use as an conference assistant port. A 5 mm port was placed to the right of the camera port for suction. The patient was placed in Trendelenburg position, and docking was then performed to the [place]okbee system utilizing a 4-arm approach. The abdomen was examined. The sigmoid colon was mobilized out of the pelvis. Several right lower quadrant adhesions were divided. The peritoneum was incised lateral to the medial umbilical ligaments bilaterally, exposing the pubis. The peritoneum was then incised across the midline, allowing the bladder flap to be taken down. The endopelvic fascia was opened bilaterally, and muscular attachments from the urogenital diaphragm were swept away from the prostate. Significant scarring was noted adjacent to the left iliac vessels, presumably due to the patient's prior left inguinal hernia repair. On the right side, there was a considerable amount of adipose tissue overlying the iliac vessels, making identification of the vessels difficult. It was ultimately decided not to perform lymphadenectomies given the low risk of lymphatic disease. The vesical neck was incised transversely, down to the lumen. The Hess catheter was brought out through the anterior vesical neck incision and was used for traction. The posterior aspect of the vesical neck was incised, such that the full-thickness of the vesical neck was divided. The anterior layer of the Denonvilliers fascia was incised, exposing the vas deferens. Each were isolated and divided. Next, each of the seminal vesicles were dissected away from adjacent tissues, and vascular attachments were cauterized and divided. The posterior leaf of Denonvilliers fascia was incised transversely, allowing entry into the plane between the prostate and rectum. With lateral spreading, this plane was developed down to the apex. This exposed the lateral vascular pedicles bilaterally. These were clipped and divided in an antegrade fashion, down to the apex. The use of electrocautery was avoided to prevent thermal damage to the nerves. The remaining apical attachments were swept away from the prostate. The dorsal venous complex was incised, as well as periurethral tissue. At this point, only the urethra remained intact. This was transected immediately distal to the prostatic apex using cold scissors. The specimen was placed within a specimen bag. The dorsal venous complex was sutured using a V-Loc suture in a running fashion. The suture was passed through the periosteum of the pubis periurethral support. A second V-Loc suture was then used to place the Mat stitch, incorporating the rhabdosphincter and the edge of Denonvilliers fascia. This allowed the bladder to be taken down to the urethra, leaving the vesical neck immediately adjacent to the urethra. The vesicourethral anastomosis was then performed using a V-Loc suture in a running fashion. After completing the anastomosis, an 18-Cymro Hess catheter was placed and approximately 150 mL of 0.9 normal saline were instilled into the bladder. No extravasation of irrigant from the vesicourethral anastomosis was noted. A small amount of oozing was noted from the vascular pedicles, so Surgicel was placed bilaterally. Tisseel was sprayed into the pelvis over the vascular pedicles, dorsal vein, and vesicourethral anastomosis. The patient was returned to the supine position. Undocking was performed, and t he specimen bag sutures were passed through the camera port. After removing all the ports and allowing all of the CO2 to be released from the peritoneal cavity, the camera port incision was enlarged to allow removal of the surgical specimen. The fascia of this incision was then closed using 0 Vicryl suture in a running fashion. Each of the skin incisions were then closed using 4-0 Monocryl suture in a subcuticular fashion. Marcaine was injected at each of the incision sites. Dermabond was applied to each incision. The Hess catheter was connected to gravity drainage. All sponge and needle counts were correct. The patient tolerated the procedure well was taken to the recovery room in stable condition.
[2019-08-13] MEDS ORDERED: MAG HYDROX/AL HYDROX/SIMETH 30 ML CUP PO PRN (12:37)
[2019-08-13] MEDS ORDERED: HYDROmorphone 1 MG/ML 1 ML SYRINGE IVP PRN (12:37)
[2019-08-13] MEDS ORDERED: ONDANSETRON 4 MG/2 ML VIAL IVP PRN (12:37)
[2019-08-13] MEDS ORDERED: ACETAMINOPHEN TAB 325 MG TAB PO PRN (12:37)
[2019-08-13] MEDS ORDERED: LABETALOL 5 MG/ML VIAL MDV IVP ONE (13:32)
[2019-08-13] MEDS: LACTATED RINGERS 1,000 ML IV SCH (15:07)
[2019-08-13] MEDS: KETOROLAC 30 MG/ML 1 ML VIAL IVP PRN (18:25)
[2019-08-13] MEDS: DEXTROSE 5%-0.45% NACL 1,000 ML IV SCH (18:26)
[2019-08-13] MEDS: METOPROLOL TARTRATE 25 MG TAB PO SCH (20:30)
[2019-08-13] MEDS: HEPARIN SODIUM,PORCINE 5,000 UNIT/ML 1 ML VIAL SQ SCH (20:30)
[2019-08-13] MEDS ORDERED: LOSARTAN 50 MG TAB PO SCH (21:00)
[2019-08-13] MEDS ORDERED: ATORVASTATIN 40 MG TAB PO SCH (21:00)
[2019-08-14] MEDS: KETOROLAC 30 MG/ML 1 ML VIAL IVP PRN ×2 (00:28→07:53)
[2019-08-14] MEDS: DEXTROSE 5%-0.45% NACL 1,000 ML IV SCH (01:47)
[2019-08-14] MEDS: METOPROLOL TARTRATE 25 MG TAB PO SCH (07:53)
[2019-08-14] MEDS: HEPARIN SODIUM,PORCINE 5,000 UNIT/ML 1 ML VIAL SQ SCH (07:53)
[2019-08-14] MEDS: LACTATED RINGERS 1,000 ML IV SCH (08:40)
--- NOTE | 2019-08-14 11:02 | P.DS ---
Providers Date of admission: 08/14/19 00:52 Expected date of discharge: 08/14/19 Attending physician: Louis Metcalf Primary care physician: [place] - Discharge Diagnosis(es) (1) Malignant neoplasm of prostate Current Visit: No Status: Acute Hospital Course: On review of admission, the patient underwent an uncomplicated robotic assisted laparoscopic prostatectomy (RALP). The postoperative course was unremarkable. He remained afebrile with stable vital signs. On the first postoperative day, he reported incisional discomfort but otherwise felt well. He tolerated regular diet for breakfast. He was sitting in a chair but had not ambulated in the hallway. The Hess catheter was draining clear yellow urine. The abdomen was soft, and the incisions were clean and dry. His pain was controlled with Toradol. Procedures: RALP on 08/13/2019. Patient Condition at Discharge: Good Plan - Discharge Summary Discharge Rx Participant: No New Discharge Prescriptions: New Ciprofloxacin HCl [Cipro] 250 mg PO Q12HR #6 tablet Hydrocodone/Acetaminophen [[place] 5-325] 1 - 2 each PO Q4HR PRN #6 tab PRN Reason: Pain No Action Tamsulosin HCl [Flomax] 0.4 mg PO HS Aspirin [Adult Low Dose Aspirin EC] 81 mg PO HS Nitroglycerin Sl Tabs [Nitrostat] 0.4 mg SUBLINGUAL Q5M PRN #25 tab PRN Reason: Chest Pain Atorvastatin [Lipitor] 40 mg PO HS #30 tab Metoprolol Tartrate [Lopressor] 25 mg PO BID #60 tab Losartan Potassium 50 mg PO HS Discharge Medication List Aspirin [Adult Low Dose Aspirin EC] 81 mg PO HS 09/15/16 [History] Tamsulosin HCl [Flomax] 0.4 mg PO HS 09/15/16 [History] Atorvastatin [Lipitor] 40 mg PO HS #30 tab 09/17/16 [Rx] Metoprolol Tartrate [Lopressor] 25 mg PO BID #60 tab 09/17/16 [Rx] Nitroglycerin Sl Tabs [Nitrostat] 0.4 mg SUBLINGUAL Q5M PRN #25 tab 09/17/16 [Rx] Losartan Potassium 50 mg PO HS 08/05/19 [History] Ciprofloxacin HCl [Cipro] 250 mg PO Q12HR #6 tablet 08/14/19 [Rx] Hydrocodone/Acetaminophen [[place] 5-325] 1 - 2 each PO Q4HR PRN #6 tab 08/14/19 [Rx] Follow up Appointment(s)/Referral(s): Louis Metcalf MD [STAFF PHYSICIAN] - 08/23/19 Patient Instructions/Handouts: Hess Catheter Placement and Care (ED), Urinary Leg Bag (GEN), Robot Assisted Laparoscopic Prostatectomy (DC) Activity/Diet/Wound Care/Special Instructions: Discharge home with Hess catheter. Instruct patient to use overnight drainage bag as well as urinary leg bag. Okay to shower. Diet as tolerated. No lifting, driving, or strenuous activity. Reassure patient that abdominal wall ecchymosis and penoscrotal swelling are normal. Instruct patient to begin taking antibiotics one day prior to Hess catheter removal. Patient no longer needs to take tamsulosin. Discharge Disposition: HOME SELF-CARE
[2019-08-14 14:49] VITALS: BP 146/76; PULSE 66; RESP 16; TEMP 98.1
== END 2019-08-14 17:23 | disposition home or self-care (01) ==
LOC: OR 06:05 → 4SSUR 12:42 → OR 08-14 00:52
PROVIDERS: ADMIT Urology; ATTEND Urology
DX: C61 Malignant neoplasm of prostate (principal); I10 Essential (primary) hypertension; E78.5 Hyperlipidemia, unspecified; G47.33 Obstructive sleep apnea (adult) (pediatric); Z99.89 Dependence on other enabling machines and devices; I25.2 Old myocardial infarction; Z82.49 Family history of ischemic heart disease and other diseases of the circulatory system; Z83.6 Family history of other diseases of the respiratory system; Z79.82 Long term (current) use of aspirin; Z79.899 Other long term (current) drug therapy; Z95.5 Presence of coronary angioplasty implant and graft; K21.9 Gastro-esophageal reflux disease without esophagitis; Z97.2 Presence of dental prosthetic device (complete) (partial)
CPT/HCPCS: 38571; 55866; S2900; 86850; 86900; 86901; 88305; 88307; 88309

== ENCOUNTER → 2019-09-15 | Outpatient (CLI) | payer OTHER | END | disposition home or self-care (01) | LOC: LABWHC1 08:52 | PROVIDERS: ATTEND Urology | DX: C61 Malignant neoplasm of prostate (principal) | CPT/HCPCS: 36415; 84153 ==

== ENCOUNTER → 2019-11-22 | Outpatient (CLI) | payer OTHER ==
[2019-11-22 10:53] LABS: Basophils % (A) 1 %; Eosinophils # (A) 0.1 k/uL (0-0.7); Eosinophils % (A) 2 %; HCT 46.7 % (39.0-53.0); HGB 15.1 gm/dL (13.0-17.5); Lymphocytes # (A) 1.3 k/uL (1.0-4.8); Lymphocytes % (A) 23 %; MCH 28.9 pg (25.0-35.0); MCHC 32.4 g/dL (31.0-37.0); MCV 89.3 fL (80.0-100.0); Monocytes # (A) 0.3 k/uL (0-1.0); Monocytes % (A) 6 %; Neutrophils # (A) 3.7 k/uL (1.3-7.7); Neutrophils % (A) 67 %; Platelet Count 177 k/uL (150-450); RBC 5.23 m/uL (4.30-5.90); RDW 13.3 % (11.5-15.5); WBC 5.5 k/uL (3.8-10.6)
[2019-11-22 17:54] LABS: African American GFR (CKD) 81.2 (60.0-200.0); Albumin 4.4 g/dL (3.80-4.90); Albumin/Globulin Ratio 1.69 (1.60-3.17); BUN/Creat Ratio 11.82 Ratio (12.00-20.00); Calcium 9.2 mg/dL (8.7-10.3); Chol/HDL Ratio 3.38; Globulin 2.6 g/dL (1.6-3.3); Non-African American GFR(CKD) 70.1 (60.0-200.0); Potassium 4.5 mmol/L (3.5-5.5); Total Bilirubin 0.7 mg/dL (0.2-1.2)
[2019-11-22 19:02] LABS: Hemoglobin A1C 5.1 % (4.0-6.0)
== END | disposition home or self-care (01) ==
LOC: LABWHC1 10:09
PROVIDERS: ATTEND Family Medicine
DX: Z00.00 Encounter for general adult medical examination without abnormal findings (principal); E78.5 Hyperlipidemia, unspecified
CPT/HCPCS: 36415; 80053; 80061; 82550; 83036; 84443; 85025

== ENCOUNTER → 2020-04-12 | Outpatient (CLI) | payer MEDICARE | END | disposition home or self-care (01) | LOC: LABWHC1 12:57 | PROVIDERS: ATTEND Urology | DX: C61 Malignant neoplasm of prostate (principal) | CPT/HCPCS: 36415; 84153 ==